=== PATIENT | female | born 1975 | race Two or more races ===

== ENCOUNTER 2023-11-22 15:25 | Emergency (ER) | payer SELFPAY ==
[~2023-11-22] VITALS: Ht 165.1 cm; Wt 72.3 kg
[2023-11-22 15:28] VITALS: TEMP 98.4
[2023-11-22] MEDS ORDERED: SODIUM CHLORIDE 0.9% 100 ML ONE (15:55)
[2023-11-22] MEDS ORDERED: IOHEXOL 350 MG/ML 100 ML VIAL ONE (15:55)
[2023-11-22 16:07] LABS: BASOPHILS % (AUTO) 0.4 % (0.0-2.0); EOSINOPHILS % (AUTO) 6.6 % (1.0-6.0); HEMATOCRIT 38.7 % (36-46); LYMPHOCYTES # (AUTO) 1.7 K/uL (1.0-4.8); LYMPHOCYTES % (AUTO) 17.6 % (22.0-44.0); MEAN CORPUSCULAR HGB CONC 33.5 G/dL (31.0-37.0); MEAN CORPUSCULAR VOLUME 83 fL (80-100); MONOCYTES # (AUTO) 0.4 K/uL (0.1-1.0); NEUTROPHILS # (AUTO) 6.9 K/uL (1.8-7.7); NEUTROPHILS % (AUTO) 71.4 % (40.0-70.0); PLATELET COUNT (AUTO) 332 K/uL (150-450); RED BLOOD CELL COUNT(AUTO) 4.65 MIL/uL (4.00-5.20); RED CELL DISTRIBUTION WIDTH 13.4 % (11.5-14.5); WHITE BLOOD COUNT (AUTO) 9.7 K/uL (4.5-11.0)
[2023-11-22 16:14] LABS: PROTHROMBIN TIME 10.5 SEC (9.4-11.6)
[2023-11-22 16:19] LABS: ANION GAP 8 mmol/L (8-16); CALCIUM, TOTAL 9.2 mg/dL (8.8-10.5); CARBON DIOXIDE 28 mmol/L (22-29); CHLORIDE 106 mmol/L (98-107); CREATININE 0.63 mg/dL (0.60-1.30); GLOMERULAR FILTR. RATE CALC > 60 mL/min (>60); GLUCOSE,RANDOM 106 mg/dL (70-110); POTASSIUM 4.3 mmol/L (3.5-5.1); SODIUM SERUM 142 mmol/L (136-145); UREA NITROGEN, BLOOD 12 mg/dL (7-18)
[2023-11-22 16:25] LABS: ALANINE AMINOTRANSFERASE 22 U/L (12-78); ALBUMIN 3.7 g/dL (3.4-5.0); ALKALINE PHOSPHATASE 86 U/L (46-116); ASPARTATE AMINOTRANSFERASE 19 U/L (15-37); BILIRUBIN,TOTAL 0.2 mg/dL (0.1-1.0); TOTAL PROTEIN, SERUM 7.5 g/dL (6.4-8.2)
[2023-11-22 16:27] LABS: TROPONIN I-HIGH SENSITIVITY 8 ng/L (<51)
[2023-11-22] MEDS ORDERED: PRED-554 PO (18:44)
[2023-11-22] MEDS ORDERED: VALA500T PO (18:44)
[2023-11-22] MEDS ORDERED: TRAM50TA5 PO (18:46)
[2023-11-22] MEDS: TraMADol HCL 50 MG TABLET PO ONE (18:47)
[2023-11-22 19:01] VITALS: BP 113/73; PULSE 57; RESP 18
== END 2023-11-22 19:01 | disposition home or self-care (01) ==
LOC: EMS 15:25
DX: D68.9 Coagulation defect, unspecified (principal); G51.0 Bell's palsy
CPT/HCPCS: 99291; 70496; 71045; 80053; 84484; 85025; 85610; 85730; 86850; 86900; 86901; 36415; 70498; 82948; 93005; 70450; Q9967; J7050